=== PATIENT | female | born 1995 | race Caucasian/White ===

== ENCOUNTER 2017-12-01 21:57 | Emergency (ER) | payer MEDICAID ==
[~2017-12-01] VITALS: Ht 170.2 cm; Wt 61.2 kg
[~2017-12-01 21:57] MED LIST: OXCA300T26
[2017-12-01 22:55] VITALS: BP 120/82
[2017-12-01 23:44] LABS: Urine Bacteria MANY /hpf (None Seen); Urine Blood Negative /uL (Negative); Urine Mucus FEW (None Seen); Urine Specific Gravity 1.008 (1.001-1.035); Urine WBC 10 /hpf (0 - 5)
== END 2017-12-02 00:02 | disposition home or self-care (01) ==
LOC: ER 21:57
DX: N39.0 Urinary tract infection, site not specified (principal); F41.9 Anxiety disorder, unspecified
CPT/HCPCS: 81001; 81025; 93005

== ENCOUNTER 2023-04-05 16:14 | Emergency (ER) | payer MEDICAID, OTHER ==
[~2023-04-05] VITALS: Ht 170.2 cm; Wt 68.0 kg
[~2023-04-05 16:14] MED LIST changes: -OXCA300T26; +OXCA300T4
[2023-04-05 16:31] VITALS: BP 129/82
[2023-04-05 19:02] LABS: Urine Bacteria FEW /hpf (None Seen); Urine Blood 1+ /uL (Negative); Urine Mucus FEW (None Seen); Urine Specific Gravity 1.019 (1.001-1.035); Urine WBC 5 /hpf (0 - 5)
== END 2023-04-05 21:25 | disposition home or self-care (01) ==
LOC: ER 16:14
DX: T14.90XA Injury, unspecified, initial encounter (principal); W22.8XXA Striking against or struck by other objects, initial encounter; Y93.89 Activity, other specified; Y92.89 Other specified places as the place of occurrence of the external cause; Y99.8 Other external cause status
CPT/HCPCS: 70486; 81001

== ENCOUNTER 2025-10-16 19:14 | Emergency (ER) | payer SELFPAY ==
[~2025-10-16] VITALS: Ht 167.6 cm; Wt 70.7 kg
[2025-10-16 19:15] VITALS: BP 144/97; PULSE 77; RESP 16; TEMP 97.4; O2SAT 98
== END 2025-10-16 20:29 | disposition left against medical advice (07) ==
LOC: ER 19:14
DX: R20.0 Anesthesia of skin (principal); Z53.21 Procedure and treatment not carried out due to patient leaving prior to being seen by health care provider; V89.2XXA Person injured in unspecified motor-vehicle accident, traffic, initial encounter; Y93.89 Activity, other specified; Y92.89 Other specified places as the place of occurrence of the external cause; Y99.8 Other external cause status